=== PATIENT | female | born 1965 | race Hispanic/Latino ===

== ENCOUNTER 2018-12-30 12:50 | Emergency (ER) | payer OTHER, SELFPAY ==
[2018-12-30 12:52] VITALS: BP 136/82; PULSE 80; RESP 18; TEMP 36.8; O2SAT 96; BMI 25.6
[2018-12-30 13:18] LABS: Bacteria Urine None Seen
[2018-12-30 13:26] LABS: Culture Indicated Urine Specimen Cultured; RBC Urine 1-5/HPF (0-5/HPF); WBC Urine 5-10/HPF (0-5/HPF)
--- NOTE | 2018-12-30 14:25 | ED_ITS ---
HPI - Female Genitourinary <Shantel Kelsey PA-C - Last Filed: 12/30/18 18:50> General Chief complaint: Urogenital-Female Stated complaint: UTI Time Seen by Provider: 12/30/18 13:07 Source: patient Mode of arrival: ambulatory Limitations: no limitations History of Present Illness HPI Narrative: This 53-year-old female complains of UTI, states she has had them in the past and this feels similar. She had onset of dysuria, frequency, and urgency yesterday, maybe with a little pink tinge in the urine that she has not seen since she started [id number] azo, which has helped her symptoms. She has had a bit of chills at times, denies fever. She states she has some soreness around her left low back area, not clearly in her flank. She thinks this could be related to her Crohn's disease however. She denies abdominal pain Related Data Home Medications Medication Instructions Recorded Confirmed loratadine 10 mg PO DAILY 12/30/18 12/30/18 Previous Rx's Medication Instructions Recorded nitrofurantoin macrocrystal 100 mg PO Q12H #10 cap 12/30/18 Allergies Allergy/AdvReac Type Severity Reaction Status Date / Time aspirin Allergy Intermediate Swelling Verified 12/30/18 15:03 of Lip/Tongue/Throat ibuprofen Allergy Intermediate Swelling Verified 12/30/18 15:03 of Lip/Tongue/Throat levothyroxine Allergy Intermediate Rash Verified 12/30/18 15:03 Sulfa (Sulfonamide Allergy Intermediate Rash Verified 12/30/18 15:03 Antibiotics) Review of Systems <Shantel Kelsey PA-C - Last Filed: 12/30/18 18:50> Review of Systems ROS Unobtainable: All systems reviewed & are unremarkable except as noted in HPI and below PFSH <Shantel Kelsey PA-C - Last Filed: 12/30/18 18:50> Medical History (Updated 12/30/18 @ 15:07 by Shantel Kelsey PA-C) Crohns disease (Acute) Surgical History (Updated 12/30/18 @ 15:07 by Shantel Kelsey PA-C) Status post cholecystectomy (Acute) Status post hernia repair (Acute) Status post hysterectomy (Acute) Social History Smoking Status: Former smoker Social History Smoking Status: Former smoker Exam <Shantel Kelsey PA-C - Last Filed: 12/30/18 18:50> Narrative Exam Narrative: GENERAL APPEARANCE: Patient sitting comfortably, in no distress. LUNGS: Clear to auscultation bilaterally. HEART: Rate and rhythm regular without murmur, normal S1 and S2, no S3 or S4. ABDOMEN: Soft, NT, ND, +BS x 4 quadrants, no CVAT. MUSCULOSKELETAL: Mild tenderness over the right mid to inferior lumbar musculature DERMATOLOGIC: No exanthem Initial Vital Signs Initial Vital Signs: Vital Signs Temperature 98.2 F 12/30/18 12:52 Pulse Rate 80 12/30/18 12:52 Respiratory Rate 18 12/30/18 12:52 Blood Pressure 136/82 12/30/18 12:52 Pulse Oximetry 96 12/30/18 12:52 <Zohreh Haji MD - Last Filed: 12/31/18 08:18> Initial Vital Signs Initial Vital Signs: Vital Signs Temperature 98.2 F 12/30/18 12:52 Pulse Rate 80 12/30/18 12:52 Respiratory Rate 18 12/30/18 12:52 Blood Pressure 136/82 12/30/18 12:52 Pulse Oximetry 96 12/30/18 12:52 Course <Shantel Kelsey PA-C - Last Filed: 12/30/18 18:50> Orders Ordered: ED Orders 12/30/18 13:17 Urine Culture Stat Urine Microscopic Stat Vital Signs Vital signs: Vital Signs - 8 hr 12/30/18 12:52 Temperature 98.2 F Pulse Rate 80 Respiratory Rate 18 Blood Pressure 136/82 Pulse Oximetry 96 <Zohreh Haji MD - Last Filed: 12/31/18 08:18> Orders Ordered: ED Orders 12/30/18 13:17 Urine Culture Stat Urine Microscopic Stat Vital Signs Vital signs: Vital Signs - 8 hr 12/30/18 12:52 Temperature 98.2 F Pulse Rate 80 Respiratory Rate 18 Blood Pressure 136/82 Pulse Oximetry 96 MDM - Female Genitourinary <Shantel Kelsey PA-C - Last Filed: 12/30/18 18:50> Lab Data Attestation: I reviewed the patient's lab results. Labs: Lab Results 12/30/18 Range/Units 13:17 Urine RBC 1-5/hpf (0-5/HPF) Urine WBC 5-10/hpf H (0-5/HPF) Urine Bacteria None seen (None) Ur Culture Indicated? Specimen cultured Urine Dip Bedside Urine Glucose 100 mg/dl Bedside Urine Bilirubin ++ 2 Bedside Urine Ketone - Negative Urine Specific [place] 1.010 Bedside Urine Occult Blood + Bedside Urine pH 6.5 Bedside Urine Protein - Negative Bedside Urine Urobilinogen 2+ 4mg Bedside Urine Nitrite + Positive Bedside Urine Leukocytes ++ 125 Esterase <Zohreh Haji MD - Last Filed: 12/31/18 08:18> Lab Data Labs: Lab Results 12/30/18 Range/Units 13:17 Urine RBC 1-5/hpf (0-5/HPF) Urine WBC 5-10/hpf H (0-5/HPF) Urine Bacteria None seen (None) Ur Culture Indicated? Specimen cultured Urine Dip Bedside Urine Glucose 100 mg/dl Bedside Urine Bilirubin ++ 2 Bedside Urine Ketone - Negative Urine Specific [place] 1.010 Bedside Urine Occult Blood + Bedside Urine pH 6.5 Bedside Urine Protein - Negative Bedside Urine Urobilinogen 2+ 4mg Bedside Urine Nitrite + Positive Bedside Urine Leukocytes ++ 125 Esterase Discharge Plan Departure Patient Disposition: Home Clinical Impression: Urinary tract infection Qualifiers: Urinary tract infection type: acute cystitis Hematuria presence: with hematuria Qualified Code(s): N30.01 - Acute cystitis with hematuria Discharge Date/Time: 12/30/18 15:04 Instructions: DI for Urinary Tract Infection (UTI) Activity Restrictions/Additional Instructions: Please start the antibiotic as soon as you pick it up. Continue azo as needed for the next couple of days. As we talked about, you should return if you have acutely worsening symptoms, or new symptoms such as fever or vomiting while you are here over the next couple of days. Otherwise, please follow-up with your PCP if this is not improving by the 1st of the week. Prescriptions: New nitrofurantoin macrocrystal 100 mg capsule 100 mg PO Q12H Qty: 10 RF: 0 No Action loratadine 10 mg tablet 10 mg PO DAILY RF: 0 Referrals: Dr. Polo, [facility] [Other]
== END 2018-12-30 15:04 | disposition home or self-care (01) ==
PROVIDERS: Emergency Provider Internal Medicine
DX: N30.01 Acute cystitis with hematuria (principal)
CPT/HCPCS: 81003; 81015; 87077; 87086; 87186; 99282; 99283